=== PATIENT | female | born 1965 | race Hispanic/Latino ===

== ENCOUNTER 2017-12-29 17:06 | Emergency (ER) | payer SELFPAY ==
[2017-12-29 17:06] VITALS: BMI 30.4
--- NOTE | 2017-12-29 18:13 | C.PDOC ---
History Of Present Illness 52 year old female presents to the ER with a complaint of headache, fever, chills, and body aches for the past 4 days. Denies nausea, vomiting, diarrhea, or abdominal pain. HPI: Influenza Time Seen by Provider: 12/29/17 17:42 Chief Complaint: Flu-like Symptoms History Per: Patient Exam Limitations: no limitations Have you had recent travel within the past 21 days to any of the following countries: [place], [place], [place] or [place]?: No Onset/Duration Of Symptoms: Days Symptoms include: fever, headache, bodyaches. denies: other (Nausea, vomiting, diarrhea, abdominal pain) Hx Influenza Vaccination: No Past Medical History Reviewed: Historical Data, Nursing Documentation, Vital Signs Vital Signs: Last Vital Signs Temp 102.7 F H 12/29/17 17:26 Pulse 101 H 12/29/17 17:26 Resp 18 12/29/17 17:26 BP 134/81 12/29/17 17:26 Pulse Ox 95 12/29/17 17:26 - Medical History PMH: Gall Bladder Disease, Kidney Stones, Malignancy, Chronic Kidney Disease Surgical History: Appendectomy, Cholecystectomy - [facility] Procedures CYSTOSCOPY NEC (11/27/13) NEPHROSCOPY (11/27/13) REMOV PYELOS/NEPHROS TUB (12/04/13) RETROGRADE PYELOGRAM (12/10/14) TU BLADDER CLEARANCE (11/27/13) URINARY SYSTEM X-RAY NEC (12/04/13) Family History: States: Unknown Family Hx - Social History Hx Tobacco Use: Yes Hx Alcohol Use: No Hx Substance Use: No - Immunization History Hx Tetanus Toxoid Vaccination: No Hx Influenza Vaccination: No Hx Pneumococcal Vaccination: No Review Of Systems Constitutional: Positive for: Fever, Chills Gastrointestinal: Negative for: Nausea, Vomiting, Abdominal Pain, Diarrhea Musculoskeletal: Positive for: Other (Body aches) Neurological: Positive for: Headache Physical Exam - Physical Exam Appears: Non-toxic, No Acute Distress Skin: Normal Color, Warm, Dry Head: Atraumatic, Normacephalic Eye(s): bilateral: Normal Inspection Ear(s): Bilateral: Normal Nose: Normal Oral Mucosa: Moist Throat: Normal, No Erythema, No Exudate Neck: Normal, Supple Chest: Symmetrical, No Tenderness Cardiovascular: Rhythm Regular Respiratory: Normal Breath Sounds, No Rales, No Rhonchi, No Wheezing Gastrointestinal/Abdominal: Soft, No Tenderness Neurological/Psych: Oriented x3, Normal Speech - ECG O2 Sat by Pulse Oximetry: 95 (Room air) Pulse Ox Interpretation: Normal - Progress ED Course And Treament: Tylenol and motrin administered. Patient is resting comfortably in the ER in no acute distress, will discharge home with Rx and instructions to follow up with PMD and to return to ED if feels worse. Disposition - Disposition Disposition: HOME/ ROUTINE Disposition Time: 18:11 Condition: STABLE Additional Instructions: Follow up with your PMD within 1-2 days. Return to ED if feel worse. Prescriptions: Brompheniramine/Pseudoephed/Dm [Bromfed Dm Cough 118 ml] 10 ml PO Q4 #300 ml Ibuprofen [Motrin Tab] 600 mg PO Q8 #30 tab Oseltamivir [Tamiflu] 75 mg PO BID #10 cap Acetaminophen [Tylenol 325mg tab] 2 tab PO Q6 #50 tab Instructions: Flu, Adult (DC) Forms: Decision Pace (Bulgarian) - Clinical Impression Clinical Impression: Influenza - PA / CARDIOPULMONARY SPECIALIST / Resident Statement MD/DO has reviewed & agrees with the documentation as recorded. - Scribe Statement The provider has reviewed the documentation as recorded by the Scribe Jeffery Novoa All medical record entries made by the Scribe were at my direction and personally dictated by me. I have reviewed the chart and agree that the record accurately reflects my personal performance of the history, physical exam, medical decision making, and the department course for this patient. I have also personally directed, reviewed, and agree with the discharge instructions and disposition.
[2017-12-29 18:22] VITALS: BP 134/83; PULSE 106; RESP 20; TEMP 102.9
[2017-12-29 20:18] VITALS: O2SAT 95
== END 2017-12-29 18:37 | disposition home or self-care (01) ==
LOC: C.ER 17:06
DX: J11.1 Influenza due to unidentified influenza virus with other respiratory manifestations (principal); N18.9 Chronic kidney disease, unspecified; Z72.0 Tobacco use